=== PATIENT | female | born 1970 | race Caucasian/White ===

== ENCOUNTER 2017-04-10 07:02 | Inpatient (IN) | payer BC ==
[2017-04-10] VITALS (7 sets, daily range): BP systolic 125–177; BP diastolic 70–100
[~2017-04-10] VITALS: Ht 172.7 cm; Wt 103.0 kg
--- NOTE | ~2017-04-10 | PR ---
[place], [place] PROGRESS NOTE NAME: LANE SHARMA UNIT #: [id number] ROOM: 428 DOCTOR: TESS FISH MD BIRTHDATE: [birth year] DOS: 04/12/2017 SUBJECTIVE: The patient was seen in the Cardiology Department today, 04/12/2017, prior to her stress test. She tells me she has had no further problems overnight, specifically denies the sensations that she had that prompted her current admission. PHYSICAL EXAMINATION: VITAL SIGNS: Her pulse today is 80 and regular, blood pressure is 126/78. She is afebrile. She weighs 103.0 kilograms. NECK: Supple. She has no jugular distention. Carotids are full. I heard no bruits. She had no neck or supraclavicular masses and no thyromegaly. LUNGS: Respirations are unlabored. Her chest is clear to auscultation and percussion. She has no presacral edema or chest wall tenderness. HEART: Has a regular rhythm with a soft S4 gallop, but no S3 or murmur. EXTREMITIES: Showed no edema. DIAGNOSTIC DATA: Monitor strips have been unremarkable since admission. IMPRESSION: 1. Loss of consciousness. The patient had a long prodrome of feeling confused and being "not with it." I think most likely this was related to hypoglycemia rather than an acute coronary event or arrhythmia. 2. Essential hypertension. 3. Type 2 diabetes mellitus, on insulin. 4. Family history of coronary artery disease at an early age. 5. Cigarette abuse. PLAN: We will proceed with an exercise myocardial stress test. Further recommendations will depend upon the results of the stress test. I thank the hospitalist physicians for asking our advice regarding her care. TESS FISH MD CM:PNTRANS [id number] TESS FISH MD 04/12/17 1313 interface
--- NOTE | ~2017-04-10 | CON ---
[place], [place] REPORT OF CONSULTATION NAME: LANE SHAR[facility] UNIT #: [id number] ROOM: 428 DOCTOR: TESS FISH MD BIRTHDATE: [birth year] DOS: 04/11/2017 CHIEF COMPLAINT: Loss of consciousness. HISTORY OF PRESENT ILLNESS: The patient is a 47-year-old woman who has no previous history of heart disease. She was diagnosed as having diabetes and hypertension at age 29. She states that there have been several adjustments in her diabetes medications in the last several months, but it has been 3 months since her last adjustment. She is being managed with metformin and insulin. She states that for the last few weeks, she has felt poorly. She has been under considerable stress. She has noticed intermittent lightheadedness and blurred vision. In the last few days, she has had brief sharp, nonradiating chest pains, which came on while walking. On the morning of 04/10/2017, she drove to fruit or nut picker her grandson. She states that she felt poorly at that time and in fact feels like she was confused and "not with it." She picked up her grandson and was driving home and now cannot recall what happened next. She awakened with her car pulled off at the side of the road in [place]. Her 9-year-old grandson was calling to her and yelling at her that she had fallen asleep. He states that she was breathing "hard." She states that she felt nauseous, got out of the car and vomited. She also claimed that she was "drenched in sweat." When she regained some of her composure, she drove to the emergency room. She realizes now that that was a mistake and that she should have called 911, but she states that she was not thinking clearly. In the emergency room, her initial sugar was 300. Reportedly, she did not have any orthostatic blood pressure change. Her monitor showed sinus rhythm and sinus tachycardia. Her electrocardiogram showed no acute changes and her troponin levels were normal. A chest x-ray and CT scan showed no infiltrates. We were asked to help assist in her evaluation. PAST MEDICAL HISTORY: Includes: 1. Type 2 diabetes mellitus, managed with insulin. 2. Essential hypertension. 3. Hyperlipidemia. 4. Status post cholecystectomy. 5. Cigarette abuse. The patient smokes intermittently, but smokes anywhere from 1/3-1/2 pack of cigarettes a day. 6. Recurrent bronchitis. REVIEW OF SYSTEMS: The patient denies diplopia or loss of vision prior to the presenting event. She denies focal weakness. She denies any previous syncope, although she has had occasional lightheadedness. She has had episodic diarrhea recently. She does have scleral injection bilaterally and states that she has seen multiple physicians for this without an answer. She did vomit at the time of her event. She denied hemoptysis or hematemesis. She states she has had a urinary tract infection recently and also has had episodic watery diarrhea recently. She denies any skin rashes. She denies any peripheral edema. The remainder of the review of systems is negative except as noted above. FAMILY HISTORY: Strongly positive for coronary disease. Her father of a [place], [place] REPORT OF CONSULTATION NAME: LANE SHARMA UNIT #: [id number] ROOM: [facility] DOCTOR: TESS FISH MD BIRTHDATE: [birth year] heart attack at age 48. Her mother of a heart attack at age 53. Her brother has had heart surgery at a young age. She said other family members have had heart disease as well. SOCIAL HISTORY: The patient does not consume alcohol or illegal drugs. She does smoke 1/3-1/2 pack a day. CURRENT MEDICATIONS: Include amlodipine 5 mg per day, aspirin 81 mg per day, benazepril 20 mg per day, Wellbutrin 200 mg per day, loratadine 10 mg per day, metformin 1000 mg per day, pravastatin 40 mg at bedtime, and Lantus insulin 50 units at bedtime. ALLERGIES: She lists allergy to PENICILLIN. PHYSICAL EXAMINATION: GENERAL: The patient is a well-nourished, overweight white female who is awake, alert and oriented. VITAL SIGNS: Pulse is 75 and regular, blood pressure is 147/85. She is afebrile. She weighs 103.0 kilograms. HEENT: Normocephalic, atraumatic. Extraocular muscles are intact. Sclerae are injected bilaterally. Pupils are equal, round and reactive to light. The oral mucosa is moist. Tongue is midline. NECK: Supple. She has no jugular distention. Carotids are full. I heard no bruits. She had no neck or supraclavicular masses. No thyromegaly. LUNGS: Respirations are unlabored. CHEST: Clear to auscultation and percussion. She has no presacral edema or chest wall tenderness. HEART: Has a regular rhythm. She has a soft fourth heart sound, but no third heart sound or murmur. The PMI is not displaced. There is no precordial heave, lift or thrill. ABDOMEN: Soft, nontender, normoactive without masses, organomegaly or rebound. EXTREMITIES: Showed no clubbing, cyanosis or edema. Peripheral pulses are easily palpated in the feet. IMAGING: I reviewed the electrocardiogram, it showed sinus rhythm and was a normal tracing. Serial troponins were normal. IMPRESSIONS: 1. Loss of consciousness. The patient had a feeling of confusion and being "not with it" without cardiac symptoms for many minutes prior to the event. She awakened covered with sweat and vomited shortly thereafter. I think it is most likely that this represented a hypoglycemic episode. Thus far, her monitor has been normal. Her orthostatic vital signs are normal and she shows no signs of an acute coronary syndrome. 2. Essential hypertension. 3. Type 2 diabetes mellitus, on insulin. 4. Family history of coronary artery disease at an early age. 5. Cigarette abuse. PLAN: We will monitor her in the hospital 1 additional day, check an [place], [place] REPORT OF CONSULTATION NAME: LANE [facility] UNIT #: [id number] ROOM: 428 DOCTOR: TESS FISH MD BIRTHDATE: [birth year] echocardiogram and an exercise myocardial perfusion study. If her monitor, exercise perfusion study and echo are normal, then no other cardiac workup would be indicated at this time; however, adjustments in her diabetic management may be indicated. I thank the hospitalist physicians for asking our advice regarding her care. TESS FISH MD CM:CONSTR:REPORT OF CONSULTATION [id number] 04/11/17 1102 interface
[2017-04-10 07:31] LABS: BASO # 0.1 10*3/uL (0.0-0.1); BASO % 0.8 % (0.0-1.0); EOS # 0.2 10*3/uL (0.0-0.4); EOS % 1.7 % (1.0-4.0); HEMATOCRIT 39.7 % (37.0-47.0); HEMOGLOBIN 13.7 g/dl (12.0-16.0); LYMPH # 4.3 10*3/uL (1.3-4.4); LYMPH % 46.2 % (27.0-41.0); MEAN CELL VOLUME 85.7 fl (81.0-99.0); MEAN CORPUSCULAR HGB 29.6 pg (27.0-31.0); MEAN CORPUSCULAR HGB CONC 34.5 g/dl (33.0-37.0); MEAN PLATELET VOLUME 10.6 fl (9.6-12.3); MONO # 0.8 10*3/uL (0.1-1.0); MONO % 8.3 % (3.0-9.0); NEUT % 42.8 % (47.0-73.0); PLATELET COUNT AUTOMATED 235 10*3/uL (130-400); RED BLOOD COUNT 4.63 10*6/uL (4.10-5.10); RED CELL DISTRI WIDTH 12.7 % (0-14.5); WHITE BLOOD COUNT 9.3 10*3/uL (4.8-10.8)
[2017-04-10 07:38] LABS: ACT PARTIAL THROMBO TIME 22.1 SECONDS (20.8-31.5); INTERNATIONAL NORM RATIO 0.9 (2.0-3.5)
[2017-04-10 07:47] LABS: ALBUMIN 3.4 gm/dl (3.1-4.5); ALKALINE PHOSPHATASE 95 U/L (45-117); BUN 9 mg/dl (7-24); CHLORIDE 102 mmol/L (98-107); CREATININE 0.79 mg/dL (0.55-1.02); LIPASE 162 U/L (73-393); POTASSIUM 3.8 mmol/L (3.5-5.1); SGOT/AST 28 IU/L (3-35); SGPT/ALT 53 U/L (12-78); SODIUM 134 mmol/L (136-145); TOTAL PROTEIN 7.8 gm/dL (6.4-8.2); TROPONIN I < 0.015 ng/ml (<0.045)
[2017-04-10 07:48] LABS: BETA-HCG, QUANT < 1.0 mIU/mL (1-3)
[2017-04-10] MEDS ORDERED: LANTUS SOL100 UNIT/1 SQ (08:06)
[2017-04-10] MEDS ORDERED: METFORMIN1000 MG PO (08:07)
[2017-04-10] MEDS ORDERED: BAYER ASPIRIN C81 MG PO (08:10)
[2017-04-10] MEDS ORDERED: CLARITIN10 MG PO (08:10)
[2017-04-10] MEDS ORDERED: NORVASC5 MG PO (08:11)
[2017-04-10] MEDS ORDERED: WELLBUTRIN SR150 MG PO (08:14)
[2017-04-10] MEDS ORDERED: PRAVACHOL40 MG PO (08:14)
[2017-04-10] MEDS ORDERED: WELLBUTRIN SR200 MG PO (08:15)
[2017-04-10] MEDS ORDERED: BENAZEPRIL20 MG PO (08:16)
--- NOTE | 2017-04-10 08:48 | NUR ---
REPORT GIVEN TO JENN SANCHEZ. PT STABLE AND READY FOR TRANSPORT TO . PT GOING TO CT FIRST.
--- NOTE | 2017-04-10 09:29 | NUR ---
PT TRANSPORTED BY RN TO INPATIENT ROOM AT THIS TIME.
--- NOTE | 2017-04-10 10:02 | NUR ---
CCDISA 47, admitted to , under the services of MARLENI Foley DO with a diagnosis of SYNCOPE. Chief complaint is LEGS ACHING. Patient arrived via bed from ER. Monitor applied. Initial assessment completed. Vital signs taken and recorded. MARLENI FOLEY DO notified of admission to the unit. Orders received. See assessment for past medical history, medications and allergies. Patient and/or family oriented to unit. [facility] visitation policy reviewed. Clothing/patient valuable form completed. JENN IRIZARRY
--- NOTE | 2017-04-10 14:47 | NUR ---
DR. BOBO'S ANSWERING SERVICE NOTIFIED OF CONSULT.
--- NOTE | 2017-04-10 19:14 | NUR ---
DR GORDON AWARE OF PATIENT BLOOD SUGAR CHECKED UPON REQUEST AND 316. HOME LANTUS ORDERED. SLIDING SCALE ORDERED. WILL MONITOR
--- NOTE | 2017-04-10 19:40 | NUR ---
PATIENT RESTING IN BED TALKING ON PHONE. NO NEEDS MADE. NO S/S OF DISTRESS. BED IN LOWEST POSITOIN, CALL LIGHT IN REACH
[2017-04-11] VITALS: BP 127/86
--- NOTE | 2017-04-11 00:39 | NUR ---
24 HR chart check completed.
--- NOTE | 2017-04-11 01:36 | NUR ---
PATIENT RESTING IN BED WITH NO S/S OF DISTRESS. RESPS EASY AND REGULAR. BED IN LOWEST POSITION, CALL LIGHT IN REACH
[2017-04-11 06:27] LABS: BASO # 0.1 10*3/uL (0.0-0.1); BASO % 0.8 % (0.0-1.0); EOS # 0.1 10*3/uL (0.0-0.4); EOS % 1.9 % (1.0-4.0); HEMOGLOBIN 12.7 g/dl (12.0-16.0); LYMPH # 3.5 10*3/uL (1.3-4.4); LYMPH % 47.3 % (27.0-41.0); MEAN CELL VOLUME 86.4 fl (81.0-99.0); MEAN CORPUSCULAR HGB 28.9 pg (27.0-31.0); MEAN CORPUSCULAR HGB CONC 33.4 g/dl (33.0-37.0); MEAN PLATELET VOLUME 11.1 fl (9.6-12.3); MONO # 0.7 10*3/uL (0.1-1.0); MONO % 9.7 % (3.0-9.0); NEUT # 2.9 10*3/uL (2.3-7.9); PLATELET COUNT AUTOMATED 214 10*3/uL (130-400); RED CELL DISTRI WIDTH 12.5 % (0-14.5); WHITE BLOOD COUNT 7.3 10*3/uL (4.8-10.8)
[2017-04-11 06:47] LABS: ALBUMIN 3.1 gm/dl (3.1-4.5); ALKALINE PHOSPHATASE 74 U/L (45-117); BUN 6 mg/dl (7-24); CHLORIDE 105 mmol/L (98-107); CHOLESTEROL 198 mg/dL (<200); CREATININE 0.62 mg/dL (0.55-1.02); FREE T4 1.04 ng/dl (0.76-1.46); HDL CHOLESTEROL 32 mg/dl (40-60); LDL CHOLESTEROL 119 mg/dL (9-159); PHOSPHOROUS 2.2 mg/dL (2.5-4.9); POTASSIUM 3.8 mmol/L (3.5-5.1); SGOT/AST 29 IU/L (3-35); SGPT/ALT 44 U/L (12-78); SODIUM 137 mmol/L (136-145); TRIGLYCERIDES 236 mg/dl (<150); VLDL CHOLESTEROL 47 mg/dL (6-40)
[2017-04-11 07:26] LABS: VITAMIN D, 25-HYDROXY 18.5 ng/mL (30-100)
[2017-04-11 08:00] VITALS: BP 147/85
--- NOTE | 2017-04-11 09:00 | NUR ---
We[employer] Control Inspector in to talk to patient. Patient states lives at home with boyfriend. There are few steps in the home. Physician: man Pharmacy: [facility] health services: none Patient's level of ADLs: INDEPENDENT Patient has working utilities: all working DME: none Follow-up physician's appointment after d/c: will be made by hospitalist nurse director upon dischage Does patient want to access PORTAL?: no Discharge plan discussed with patient, patient states she lives at home with boyfriend, she is independent in adls and ambulation, works and drives, denies any home needs. [employer]
--- NOTE | 2017-04-11 09:52 | NUR ---
Shift chart check completed.
--- NOTE | 2017-04-11 10:26 | NUR ---
ECHO AT BEDSIDE
[2017-04-11 12:00] VITALS: BP 137/82
[2017-04-11 16:00] VITALS: BP 117/74
[2017-04-11 20:00] VITALS: BP 111/82
[2017-04-12] VITALS: BP 108/81
--- NOTE | 2017-04-12 03:20 | NUR ---
PATIENT RESTING IN BED WITH NO S/S OF DISTRESS. RESPS EASY AND REGULAR. BED IN LOWEST POSITOIN, CALL LIGHT IN REACH
--- NOTE | 2017-04-12 03:36 | NUR ---
24 HR chart check completed.
[2017-04-12 06:55] LABS: BASO % 0.6 % (0.0-1.0); EOS # 0.1 10*3/uL (0.0-0.4); EOS % 1.4 % (1.0-4.0); HEMATOCRIT 38.9 % (37.0-47.0); HEMOGLOBIN 13.3 g/dl (12.0-16.0); LYMPH # 3.1 10*3/uL (1.3-4.4); LYMPH % 43.7 % (27.0-41.0); MEAN CELL VOLUME 86.6 fl (81.0-99.0); MEAN CORPUSCULAR HGB 29.6 pg (27.0-31.0); MEAN CORPUSCULAR HGB CONC 34.2 g/dl (33.0-37.0); MEAN PLATELET VOLUME 10.9 fl (9.6-12.3); MONO # 0.6 10*3/uL (0.1-1.0); MONO % 8.8 % (3.0-9.0); NEUT # 3.2 10*3/uL (2.3-7.9); NEUT % 45.1 % (47.0-73.0); PLATELET COUNT AUTOMATED 221 10*3/uL (130-400); RED BLOOD COUNT 4.49 10*6/uL (4.10-5.10); RED CELL DISTRI WIDTH 12.6 % (0-14.5); WHITE BLOOD COUNT 7.1 10*3/uL (4.8-10.8)
[2017-04-12 07:22] LABS: BUN 8 mg/dl (7-24); CHLORIDE 104 mmol/L (98-107); POTASSIUM 3.7 mmol/L (3.5-5.1); SODIUM 136 mmol/L (136-145)
[2017-04-12 07:24] LABS: CREATININE 0.53 mg/dL (0.55-1.02)
[2017-04-12 08:00] VITALS: BP 126/78
--- NOTE | 2017-04-12 08:00 | NUR ---
WAS MADE AWARE ON PT'S ADMISSION, THAT SHE HAD A DOCTOR'S APPT. WITH HER PCP ON AND PT WOULD RECIEVE THE FLU VACCINE AT THAT TIME.
--- NOTE | 2017-04-12 09:00 | NUR ---
case management visits with patient, patient denies any home needs
--- NOTE | 2017-04-12 10:00 | NUR ---
INFORMED CONSENT OBTAINED FOR EXERCISE CARDIOLITE STRESS TEST WITH DR. FISH. RESTING EKG NSR WITH A SUPINE HR OF 76 WITH BP OF 124/88 AND HR OF 92 WITH BP OF 122/84. PT COMPLETED 8:30 OF A MINISTERIO PROTOCOL WITH COMPLETION OF 2:30 OF STAGE III AT 3.4 MPH AND 14% GRADE. REACHED A PEAK HR OF 150 WHICH IS 87% OF PREDICTED MAX WITH A PEAK BP OF 186/90. HAD NO CHEST PAIN OR ANY EKG CHANGES. TEST TERMINATED BECAUSE OF FATIGUE. HAS A GOOD EXERCISE TOLERANCE. LAST RECOVERY HR OF 110 WITH BP OF 140/70. AWAITING SCANNING IN STABLE CONDITION.
[2017-04-12 16:23] LABS: BILIRUBIN NEGATIVE (NEGATIVE); BLOOD NEGATIVE (NEGATIVE); CLARITY SL CLOUDY (CLEAR); COLOR YELLOW (YELLOW); GLUCOSE 3+ (NEGATIVE); KETONE NEGATIVE (NEGATIVE); LEUKO ESTERASE NEGATIVE (NEGATIVE); NITRITE NEGATIVE (NEGATIVE); UROBILINOGEN 0.2 E.U./dl (0.2-1.0)
--- NOTE | 2017-04-12 16:57 | NUR ---
[facility] Discharge instructions reviewed with patient/family. Patient receptive and verbalizes understanding. Follow-up care arranged. Written instructions given to patient/family. JENN IRIZARRY
[2017-04-12 17:12] LABS: BACTERIA 1+; WBC 0-2 wbc/hpf (0-5)
== END 2017-04-12 16:57 | disposition home or self-care (01) | DRG 312 ==
LOC: ED 07:02 → 4E 08:05 → EDHOLD 08:05 → 4E 08:32
PROVIDERS: Emergency Medicine; Internal Medicine; ADMIT Internal Medicine
DX: R55 Syncope and collapse (principal); R65.10 Systemic inflammatory response syndrome (SIRS) of non-infectious origin without acute organ dysfunction; D72.810 Lymphocytopenia; E11.9 Type 2 diabetes mellitus without complications; E78.5 Hyperlipidemia, unspecified; E66.3 Overweight; F17.210 Nicotine dependence, cigarettes, uncomplicated; I10 Essential (primary) hypertension; Z79.4 Long term (current) use of insulin; Z88.0 Allergy status to penicillin; Z79.82 Long term (current) use of aspirin; Z79.899 Other long term (current) drug therapy; Z90.49 Acquired absence of other specified parts of digestive tract; Z83.3 Family history of diabetes mellitus; Z82.49 Family history of ischemic heart disease and other diseases of the circulatory system; Z68.33 Body mass index [BMI] 33.0-33.9, adult

== ENCOUNTER → 2018-12-12 | Outpatient (CLI) | payer BC ==
[~2018-12-12] MED LIST: BAYER ASPIRIN C81 MG PO; BENAZEPRIL20 MG PO; CLARITIN10 MG PO; LANTUS SOL100 UNIT/1 SQ; METFORMIN1000 MG PO; NORVASC5 MG PO; PRAVACHOL40 MG PO; WELLBUTRIN SR150 MG PO; WELLBUTRIN SR200 MG PO
== END | disposition home or self-care (01) ==
LOC: RAD 10:46
DX: M25.475 Effusion, left foot (principal)